=== PATIENT | female | born 1960 | race Caucasian/White ===

== ENCOUNTER → 2016-07-25 | Outpatient (CLI) | payer MEDICAID | LOC: CIMAGING 09:13 | PROVIDERS: ATTEND Obstetrics & Gynecology | DX: N95.0 Postmenopausal bleeding (principal) | CPT/HCPCS: 76856-PO ==

== ENCOUNTER → 2016-09-17 | Outpatient (CLI) | payer MEDICAID | LOC: FIMAGING 08:16 | PROVIDERS: ATTEND Obstetrics & Gynecology | DX: Z12.31 Encounter for screening mammogram for malignant neoplasm of breast (principal) | CPT/HCPCS: G0202 ==

== ENCOUNTER → 2016-12-21 | Outpatient (CLI) | payer MEDICAID | LOC: FIMAGING 11:54 | PROVIDERS: ATTEND Obstetrics & Gynecology | DX: N95.0 Postmenopausal bleeding (principal) ==

== ENCOUNTER → 2017-08-27 | Outpatient (CLI) | payer MEDICAID | LOC: FIMAGING 16:22 | PROVIDERS: ATTEND Obstetrics & Gynecology | DX: N95.0 Postmenopausal bleeding (principal) ==

== ENCOUNTER → 2017-10-09 | Outpatient (CLI) | payer MEDICAID | LOC: FIMAGING 12:59 | PROVIDERS: ATTEND Obstetrics & Gynecology | DX: Z12.31 Encounter for screening mammogram for malignant neoplasm of breast (principal) ==

== ENCOUNTER → 2017-12-30 | Outpatient (CLI) | payer MEDICAID | LOC: FIMAGING 10:21 | PROVIDERS: ATTEND Obstetrics & Gynecology | DX: N60.11 Diffuse cystic mastopathy of right breast (principal) ==